=== PATIENT | male | born 2005 | race Caucasian/White ===

== ENCOUNTER 2024-08-23 18:27 | Day surgery (SDC) | payer MEDICAID ==
[2024-08-23] MEDS ORDERED: HYDROmorphone 0.5 MG/0.5 ML Syringe IVPUSH PRN (18:46)
[2024-08-23 18:56] LABS: APPEARANCE,URINE CLEAR; BILIRUBIN,URINE NEGATIVE (NEGATIVE); COLOR,URINE YELLOW; GLUCOSE,URINE 100 mg/dL (NEGATIVE); KETONES,URINE 15 mg/dL (NEGATIVE); LEUKOCYTE ESTERASE,URINE NEGATIVE (NEGATIVE); NITRITE,URINE NEGATIVE (NEGATIVE); OCCULT BLOOD,URINE NEGATIVE (NEGATIVE); PROTEIN,URINE TRACE mg/dL (NEGATIVE)
[2024-08-23 18:58] LABS: BASOPHILS ABSOLUTE AUTO 0.04 K/uL (0.00-0.20); BASOPHILS PERCENT AUTO 0.2 % (0.0-1.0); EOSINOPHILS ABSOLUTE AUTO 0.01 K/uL (0.00-0.45); EOSINOPHILS PERCENT AUTO 0.1 % (0.0-6.0); HEMATOCRIT 43.5 % (42.0-52.0); HEMOGLOBIN 15.6 g/dL (14.0-18.0); IMMATURE GRAN ABSOLUTE AUTO 0.06 K/uL (0.00-0.05); IMMATURE GRAN PERCENT AUTO 0.3 % (0.0-0.4); LYMPHOCYTES ABSOLUTE AUTO 1.24 K/uL (1.00-4.80); MEAN CORPUSCULAR HEMOGLOBIN 30.3 pg (28.0-32.0); MEAN CORPUSCULAR HGB CONC 35.9 g/dL (32.0-36.0); MEAN CORPUSCULAR VOLUME 84.5 fL (83.0-99.0); MEAN PLATELET VOLUME 10.9 fL (9.4-12.4); MONOCYTES ABSOLUTE AUTO 1.66 K/uL (0.00-0.80); MONOCYTES PERCENT AUTO 9.4 % (0.0-8.0); NEUTROPHILS ABSOLUTE AUTO 14.74 K/uL (1.80-7.70); PLATELET COUNT,PLT 171 K/uL (150-400); RED BLOOD CELL COUNT 5.15 M/uL (4.52-5.90); WHITE BLOOD CELL COUNT,WBC 17.75 K/uL (3.9-11.3)
[2024-08-23 19:03] LABS: BACTERIA,URINE FEW (NEGATIVE); EPITHELIAL CELLS,URINE RARE (NONE-FEW); RBC,URINE 0-2 (0-2/HPF); WBC,URINE 0-2 (0-5/HPF)
[2024-08-23] MEDS: Sodium Chloride 0.9% 1,000 ML IV ONE (19:07)
[2024-08-23] MEDS: Ondansetron 4 MG/2 ML SDV IVPUSH ONE (19:08)
[2024-08-23] MEDS: Morphine 2 MG/ML SYRINGE IVPUSH ONE (19:08)
[2024-08-23] MEDS: Sodium Chloride 0.9% 10 ML Syringe FLUSH PRN (19:08)
[2024-08-23 19:20] LABS: A/G RATIO 1.2 (0.9-1.6); ALBUMIN 4.2 g/dL (3.4-5.0); BILIRUBIN TOTAL 1.5 mg/dL (0.2-1.0); CALCIUM 9.1 mg/dL (8.5-10.1); CARBON DIOXIDE,CO2 29.5 mmol/L (21.0-32.0); CREATININE 1.1 mg/dL (0.8-1.3); EST CRCL DRUG DOSING (CG) 109.68 mL/min; MAGNESIUM 1.7 mg/dL (1.8-2.4); POTASSIUM,K 3.5 mmol/L (3.5-5.1); PROTEIN TOTAL,TP 7.6 g/dL (6.4-8.2)
[2024-08-23] MEDS: Iopamidol 755 MG/ML 500 ML Multipack Bottle IVPUSH ONE (21:30)
[2024-08-23] MEDS ORDERED: Piperacillin/Tazobactam 3.375 GM in Sodium Chloride 0.9% 100 ML IV ONE (21:52)
[2024-08-23] MEDS: Piperacillin/Tazobactam 4.5 GM in Sodium Chloride 0.9% 100 ML IV ONE (22:22)
[2024-08-23] MEDS: Sodium Chloride 0.9% 1,000 ML IV SCH (22:22)
[2024-08-23] MEDS ORDERED: dexmedeTOMIDine HCl 200 MCG/2 ML SDV ONE (22:48)
[2024-08-23] MEDS ORDERED: fentaNYL 100 MCG/2 ML SDV ONE (22:49)
[2024-08-23] MEDS ORDERED: Rocuronium Bromide 50 MG/5 ML Syringe ONE ×2 (22:49)
[2024-08-23] MEDS ORDERED: Propofol 200 MG/20 ML SDV ONE (22:49)
[2024-08-23] MEDS ORDERED: Ropivacaine 0.5% 5 MG/ML 30 ML SDV ONE (22:57)
[2024-08-23] MEDS ORDERED: Bupivacaine 0.25% 30 ML SDV ONE (22:57)
[2024-08-23] MEDS ORDERED: Bupivacaine 0.5% 30 ML SDV ONE (22:58)
[2024-08-23] MEDS ORDERED: Ondansetron 4 MG/2 ML SDV ONE (23:46)
[2024-08-23] MEDS ORDERED: Dexamethasone 4 MG/ML 5 ML MDV ONE (23:46)
[2024-08-24] MEDS ORDERED: Ketorolac 30 MG/ML SDV ONE (00:08)
[2024-08-24] MEDS ORDERED: Sugammadex Sodium 200 MG/2 ML VIAL IV ONE (00:08)
[2024-08-24] MEDS ORDERED: HYDROmorphone 1 MG/ML Syringe IVPUSH PRN (00:45)
[2024-08-24] MEDS ORDERED: Acetaminophen 325 MG Tab PO PRN (00:45)
[2024-08-24] MEDS ORDERED: Ondansetron 4 MG/2 ML SDV IVPUSH PRN (00:45)
[2024-08-24] MEDS ORDERED: Acetaminophen/oxyCODONE 325-5 MG Tab PO PRN (00:45)
[2024-08-24] MEDS ORDERED: Naloxone 0.4 MG/ML SDV IVPUSH PRN (00:45)
[2024-08-24] MEDS: Sodium Chloride 0.9% 1,000 ML IV SCH (01:46)
[2024-08-24] MEDS: Piperacillin/Tazobactam 4.5 GM in Sodium Chloride 0.9% 100 ML IV SCH (02:30)
== END 2024-08-24 12:40 | disposition home or self-care (01) ==
LOC: MW.ED 18:27 → MW.MS 22:48 → MW.SDS 22:48 → MW.MS 23:36 → MW.SDS 08-24 12:40
PROVIDERS: ATTEND Surgery
DX: K35.33 Acute appendicitis with perforation, localized peritonitis, and gangrene, with abscess (principal)
CPT/HCPCS: 36415; 44970; 64488; 74177; 80053; 81001; 83605; 83690; 83735; 85025; 85652; 86140; 87428; 96361; 96365; 96375; 99285; J0131; J0665; J1100; J1885; J2270; J2405; J2543; J2704; J2795; J3010; J3490; J7030; Q9967; 00840

== ENCOUNTER 2025-01-12 18:33 | Emergency (ER) | payer SELFPAY ==
[2025-01-12] MEDS: Acetaminophen/oxyCODONE 325-5 MG Tab PO ONE (20:59)
== END 2025-01-12 21:05 | disposition home or self-care (01) ==
LOC: MW.ED 18:33
DX: S92.201A Fracture of unspecified tarsal bone(s) of right foot, initial encounter for closed fracture (principal); Z79.899 Other long term (current) drug therapy; V86.55XA Driver of 3- or 4- wheeled all-terrain vehicle (ATV) injured in nontraffic accident, initial encounter; Y93.89 Activity, other specified; Z75.8 Other problems related to medical facilities and other health care
CPT/HCPCS: 29505; 73630; 73700; 99284; A9270; 99283

== ENCOUNTER 2025-02-20 13:37 | Emergency (ER) | payer SELFPAY | END 2025-02-20 15:20 | disposition home or self-care (01) | LOC: MW.ED 13:37 | DX: Z02.79 Encounter for issue of other medical certificate (principal) | CPT/HCPCS: 99281; 99282 ==